=== PATIENT | female | born 1965 | race Hispanic/Latino ===

== ENCOUNTER 2020-09-28 12:36 | Inpatient (IN) | payer SELFPAY ==
[~2020-09-28] VITALS: Ht 160 cm; Wt 59.0 kg
[2020-09-28 12:53] LABS: BASOPHILS % (AUTO) 1.1 % (0.0-5.0); EOSINOPHILS % (AUTO) 2.2 % (0.0-8.0); HEMATOCRIT 45.2 % (36-48); LYMPHOCYTES % (AUTO) 39.5 % (21.0-51.0); MEAN CORPUSCULAR HEMOGLOBIN 24.8 pg (27.0-33.0); MEAN CORPUSCULAR HGB CONC 31.4 g/dL (32.0-36.0); MONOCYTES % (AUTO) 11.2 % (3.0-13.0); NEUTROPHILS % (AUTO) 45.8 % (40.0-77.0); PLATELET COUNT (AUTO) 281 K/uL (130-400); RED BLOOD CELL COUNT(AUTO) 5.72 MIL/uL (4.00-5.50); RED CELL DISTRIBUTION WIDTH 17.9 % (11.0-15.5); WHITE BLOOD COUNT (AUTO) 6.3 K/uL (4.8-10.8)
[2020-09-28 13:01] LABS: CREATININE 0.8 mg/dL (0.5-1.5); POTASSIUM 3.6 mmol/L (3.5-5.1)
[2020-09-28] MEDS ORDERED: ACETAMINOPHEN 325 MG TAB PO PRN (18:00)
[2020-09-28] MEDS ORDERED: ASPIRIN 81MG TAB.CHEW PO SCH (18:00)
[2020-09-28] MEDS ORDERED: ASPIRIN 81MG TAB.CHEW ONE (18:10)
[2020-09-28 18:22] LABS: HEMOGLOBIN A1C 6.3 % (4.0-6.0)
[2020-09-28] MEDS ORDERED: FAMOTIDINE 20MG TAB 20 MG TAB ONE (20:53)
[2020-09-28] MEDS ORDERED: FAMOTIDINE 20MG TAB 20 MG TAB PO SCH (21:00)
[2020-09-28] MEDS: FAMOTIDINE 20MG TAB 20 MG TAB PO SCH (21:00)
[2020-09-29 04:03] LABS: BASOPHILS % (AUTO) 1.2 % (0.0-5.0); EOSINOPHILS % (AUTO) 4.4 % (0.0-8.0); HEMATOCRIT 42.1 % (36-48); LYMPHOCYTES % (AUTO) 38.5 % (21.0-51.0); MEAN CORPUSCULAR HEMOGLOBIN 24.6 pg (27.0-33.0); MEAN CORPUSCULAR HGB CONC 31.1 g/dL (32.0-36.0); MONOCYTES % (AUTO) 11.4 % (3.0-13.0); NEUTROPHILS % (AUTO) 44.3 % (40.0-77.0); PLATELET COUNT (AUTO) 247 K/uL (130-400); RED BLOOD CELL COUNT(AUTO) 5.33 MIL/uL (4.00-5.50); RED CELL DISTRIBUTION WIDTH 17.5 % (11.0-15.5); WHITE BLOOD COUNT (AUTO) 5.9 K/uL (4.8-10.8)
[2020-09-29 04:26] LABS: ALBUMIN 3.3 g/dL (3.5-5.0); BILIRUBIN,TOTAL 0.5 mg/dL (0.2-1.0); CREATININE 0.8 mg/dL (0.5-1.5); POTASSIUM 3.9 mmol/L (3.5-5.1); TOTAL PROTEIN, SERUM 7.2 g/dL (6.0-8.3)
[2020-09-29] MEDS ORDERED: FAMOTIDINE 20MG TAB 20 MG TAB ONE (07:37)
[2020-09-29] MEDS ORDERED: ASPIRIN 81MG TAB.CHEW ONE (07:37)
[2020-09-29] MEDS: FAMOTIDINE 20MG TAB 20 MG TAB PO SCH ×2 (09:00→22:10)
[2020-09-29] MEDS ORDERED: ASPIRIN 81MG TAB.CHEW PO SCH (09:00)
[2020-09-29] MEDS ORDERED: MULTIVITAMIN TABLET PO SCH (12:30)
[2020-09-29] MEDS ORDERED: MULTIVITAMIN TABLET ONE (14:26)
--- NOTE | 2020-09-29 15:06 | NUR ---
CM NOTE/IA UNSUCCESSFUL UNABLE TO MEET WITH PATIENT, NEXT OF KIN CALLED, JARROD WOLF, AUNT. PER AUNT, DOES NOT KNOW PATIENT MEDICAL HISTORY AND PHONE NUMBER FOR PATIENTS SON GIVEN, AMY ARREGUIN [phone]. PHONE NUMBER CALLED, NO ANSWER. CM TO FOLLOW UP FOR IA. Addendum: 09/29/20 at 1508 by ANGELES ARMENDARIZ RN CM Amended: Links added.
[2020-09-29 15:50] VITALS: BP 135/64
[2020-09-29 21:07] VITALS: BP 136/78
[2020-09-30 04:23] VITALS: BP 109/57
[2020-09-30 06:28] LABS: BASOPHILS % (AUTO) 1.1 % (0.0-5.0); EOSINOPHILS % (AUTO) 3.4 % (0.0-8.0); HEMATOCRIT 41.5 % (36-48); LYMPHOCYTES % (AUTO) 30.5 % (21.0-51.0); MEAN CORPUSCULAR HEMOGLOBIN 24.7 pg (27.0-33.0); MEAN CORPUSCULAR HGB CONC 31.6 g/dL (32.0-36.0); MEAN CORPUSCULAR VOLUME 78.2 fL (79-99); NEUTROPHILS % (AUTO) 52.8 % (40.0-77.0); PLATELET COUNT (AUTO) 255 K/uL (130-400); RED BLOOD CELL COUNT(AUTO) 5.31 MIL/uL (4.00-5.50); RED CELL DISTRIBUTION WIDTH 17.4 % (11.0-15.5); WHITE BLOOD COUNT (AUTO) 6.2 K/uL (4.8-10.8)
[2020-09-30 06:41] LABS: ALBUMIN 3.4 g/dL (3.5-5.0); BILIRUBIN,TOTAL 0.7 mg/dL (0.2-1.0); POTASSIUM 4.1 mmol/L (3.5-5.1); TOTAL PROTEIN, SERUM 7.4 g/dL (6.0-8.3)
[2020-09-30 06:47] LABS: CREATININE 0.8 mg/dL (0.5-1.5)
[2020-09-30 08:00] VITALS: BP 135/72
[2020-09-30] MEDS ORDERED: ENOXAPARIN SODIUM 40 MG/0.4 ML SYRINGE SQ SCH (09:00)
[2020-09-30] MEDS: FAMOTIDINE 20MG TAB 20 MG TAB PO SCH (09:07)
--- NOTE | 2020-09-30 10:30 | NUR ---
DR PÉREZ WAS CALL AND NOTIFY ABOUT CONSULT. DR PÉREZ VERBALIZED THAT PT CAN BE SEEN OUTPATIENT BETWEEN 7 TO 10 DAYS AFTER D/C.
[2020-09-30 11:31] VITALS: BP 126/77
--- NOTE | 2020-09-30 13:19 | NUR ---
MET WITH PATIENT AND FRIEND AT [facility] PLANNING LIVES WITH SON, NO DME, INDEPENDENT, DRIVES, SOMETIMES SEES IN SIX MILE, DOES NOT GO TO ANY CLINIC HERE. DCP IS HOME, MALE FRIEND AT BEDSIDE TO DRIVE MALE FRIEND AT BEDSIDE DECLINED TO GIVE NAME, ASKED A LOT OF QUESTIONS REGARDING PT'S HEALTH/ FINDINGS OF TEST. THIS CM DID ADVISE BOTH PT AND FRIEND THAT TEST FOR ANYTHING IN THE HEAD HAVE BEEN NEGATIVE, BUT HTAT PATIENT WOULD HAVE TO FOLLOW UP FOR THE SHOULDER INJURY. ASKED TINY MCKEON TO FURNISH PATIENT WITH REPORT OF SHOULDER MRI. ON DISCHARGE, COMMUNITY PKT GIVEN, Addendum: 09/30/20 at 1416 by LARISSA HOLDEN RN CM Amended: Links added.
== END 2020-09-30 15:00 | disposition home or self-care (01) | DRG 69 ==
LOC: EDH 12:36 → EDBD 12:37 → EDHIP 12:37 → 4CH 09-29 15:34
PROVIDERS: ADMIT Hospitalist; ATTEND Hospitalist
DX: G45.9 Transient cerebral ischemic attack, unspecified (principal)
CPT/HCPCS: 36415; 70450; 70551; 71045; 73221; 80048; 80053; 80061; 83036; 84484; 85025; 86900; 86901; 93005; G0378